=== PATIENT | female | born 1950 | race Caucasian/White ===

== ENCOUNTER 2021-12-01 08:56 | Outpatient (CLI) | payer MEDICARE, SELFPAY | END 2021-12-01 08:57 | disposition home or self-care (01) | PROVIDERS: Visit Provider Emergency Medicine Emergency Medical Services | DX: S09.90XA Unspecified injury of head, initial encounter (principal); W55.12XA Struck by horse, initial encounter; Y92.71 Barn as the place of occurrence of the external cause | CPT/HCPCS: A0425; A0427 ==